=== PATIENT | female | born 1965 | race African-American/Black ===

== ENCOUNTER 2016-05-25 13:21 | Emergency (ER) | payer SELFPAY ==
[~2016-05-25] VITALS: Ht 165.1 cm; Wt 99.8 kg
[2016-05-25] MEDS ORDERED: CYCLOBENZAPRINE 10 MG TABLET. PO ONE (15:30)
[2016-05-25] MEDS ORDERED: HYDROCODONE/APAP 5/325MG TABLET. PO ONE (15:30)
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
--- NOTE | 2016-05-25 16:11 | RAD ---
CT of the head without contrast, 05/25/2016: History: Fall, head injury, possible loss of consciousness The ventricles are within normal limits in size. There is no shift of the midline structures. There is no evidence of acute intracranial hemorrhage or mass effect. IMPRESSION: No acute intracranial abnormality is detected. CT of the cervical spine without contrast, 05/25/2016: Noncontrast scans were obtained with multiplanar reconstructions produced. No fracture or dislocation is identified. There are moderate degenerative changes involving scattered facet joints bilaterally. There are mild scattered marginal spurs. There are several mild posterior disc bulges. There is mild bony foraminal narrowing at multiple levels bilaterally. No high-grade central spinal stenosis is seen. IMPRESSION: 1. Moderate degenerative change. 2. No acute cervical spine abnormality is detected. PQRS Compliance Statement: One or more of the following individualized dose reduction techniques were utilized for this examination: 1. Automated exposure control 2. Adjustment of the mA and/or kV according to patient size 3. Use of iterative reconstruction technique
--- NOTE | 2016-05-25 16:42 | RAD ---
Indication pain associated with a fall. AP and lateral views of the thoracic spine were obtained. A swimmer's view was also obtained. There are degenerative changes involving the lower thoracic spine. An acute bony finding is not seen. IMPRESSION: Mild degenerative change. No acute finding seen
[2016-05-25] MEDS ORDERED: CYCL10TA2 PO (17:20)
[2016-05-25] MEDS ORDERED: HYDR-971 PO (17:20)
[2016-05-25] MEDS ORDERED: PROM25TA10 PO (17:20)
[2016-05-25 17:54] VITALS: BP 138/66
== END 2016-05-25 18:11 | disposition home or self-care (01) ==
LOC: ER 13:21
DX: S13.4XXA Sprain of ligaments of cervical spine, initial encounter (principal); S20.229A Contusion of unspecified back wall of thorax, initial encounter; S09.90XA Unspecified injury of head, initial encounter; E05.00 Thyrotoxicosis with diffuse goiter without thyrotoxic crisis or storm; Z90.710 Acquired absence of both cervix and uterus; Z90.49 Acquired absence of other specified parts of digestive tract; Z88.0 Allergy status to penicillin; Z91.041 Radiographic dye allergy status; W01.198A Fall on same level from slipping, tripping and stumbling with subsequent striking against other object, initial encounter; Y93.89 Activity, other specified; Y92.89 Other specified places as the place of occurrence of the external cause; Y99.8 Other external cause status
CPT/HCPCS: 70450; 72072; 72125; 99284-25

== ENCOUNTER 2017-02-12 07:40 | Emergency (ER) | payer BC ==
[~2017-02-12] VITALS: Ht 166.4 cm; Wt 97.1 kg
[~2017-02-12 07:40] MED LIST: CYCL10TA2 PO; HYDR-971 PO; PROM25TA10 PO
[2017-02-12] MEDS ORDERED: KETOROLAC 30 MG/ML INJ. IV ONE (08:00)
[2017-02-12] MEDS ORDERED: ONDANSETRON PF 4 MG/2 ML VIAL. IV ONE (08:00)
[2017-02-12 08:03] LABS: BILIRUBIN,URINE SMALL (NEG); GLUCOSE,URINE NEGATIVE (NEG); NITRITE,URINE NEGATIVE (NEG); PH,URINE 5.5; PROTEIN,URINE NEGATIVE (NEG-TRACE); UROBILINOGEN,URINE 0.2 mg/dL (0.2 mg/dL)
[2017-02-12 08:14] LABS: BACTERIA,URINE FEW /HPF (0-FEW); RBC,URINE 0 /HPF (0-2); WBC,URINE OCC /HPF (0-4)
[2017-02-12 08:15] LABS: SQUAMOUS EPITHELIAL CELL,UR MOD /LPF
[2017-02-12] MEDS ORDERED: IV NORMAL SALINE 1000ML BAG 1,000 ML IV ONE (08:15)
[2017-02-12 08:33] LABS: BASO % 1 % (0-3); EOS % 4 % (0-3); HEMATOCRIT 39.8 % (36.0-47.0); HEMOGLOBIN 13.1 g/dL (12.0-15.5); LYMPH # 1.3 x10^3/uL (1.0-4.8); LYMPH % 27 % (24-48); MEAN CORPUSCULAR HEMOGLOBIN 29 pg (25-35); MEAN CORPUSCULAR HGB CONC 33 g/dL (31-37); MEAN CORPUSCULAR VOLUME 89 fL (79-100); MONO % 8 % (0-9); NEUT % 60 % (31-73); PLATELET COUNT 245 x10^3/uL (140-400); RED BLOOD COUNT 4.48 x10^6/uL (3.50-5.40); RED CELL DISTRIBUTION WIDTH 14.3 % (11.5-14.5); WHITE BLOOD COUNT 4.7 x10^3/uL (4.0-11.0)
[2017-02-12 08:48] LABS: CALCIUM 9.5 mg/dL (8.5-10.1); CREATININE 0.6 mg/dL (0.6-1.0); POTASSIUM 3.6 mmol/L (3.5-5.1)
[2017-02-12 08:54] LABS: ALBUMIN 3.8 g/dL (3.4-5.0); ALBUMIN/GLOBULIN RATIO 0.9 (1.0-1.7); TOTAL BILIRUBIN 0.7 mg/dL (0.2-1.0); TOTAL PROTEIN 7.9 g/dL (6.4-8.2)
--- NOTE | 2017-02-12 09:04 | RAD ---
CT of the abdomen and pelvis without contrast, 02/12/2017: History: Right-sided pain Noncontrast scans were obtained to the abdomen and pelvis utilizing the renal stone protocol. Comparison is made to a study from 04/14/2015. No intrarenal calculi are identified. The renal collecting systems and ureters are not dilated. The distal ureters are not clearly delineated. There is no evidence of a ureteral calculus. The urinary bladder is largely collapsed and poorly defined. Several well-defined low density lesions in the liver are compatible with hepatic cysts. The largest of these measures 4.2 cm in diameter and lies inferiorly in the right lobe. Several of these cysts, including this largest cyst, have increased slightly in size since 04/14/2015. The gallbladder is unremarkable. No pancreatic abnormality is seen. The spleen is of normal size. No abdominal or pelvic adenopathy is evident. The uterus and appendix are surgically absent. The bowel loops are not dilated. No free air or significant free fluid is evident in the abdomen or pelvis. There are moderate degenerative changes involving the facet joints in the lower lumbar spine. IMPRESSION: 1. No urinary tract calculi are identified. 2. Multiple hepatic cysts. PQRS Compliance Statement: One or more of the following individualized dose reduction techniques were utilized for this examination: 1. Automated exposure control 2. Adjustment of the mA and/or kV according to patient size 3. Use of iterative reconstruction technique
--- NOTE | 2017-02-12 09:49 | RAD ---
Chest, 2 views, 02/12/2017: History: Right flank pain The heart size and pulmonary vascularity are normal. No pulmonary infiltrates are seen. There is no evidence of pleural fluid. Moderate spurring is present in the spine. IMPRESSION: No acute cardiopulmonary abnormality is detected.
--- NOTE | 2017-02-12 09:55 | PHYS DOC ---
Past Medical History Past Medical History: Kidney Infection, Kidney Stone, Other Additional Past Medical Histor: cyst on right ovary, BOWEL OBSTRUCTION, HYDRONEPHORSIS, GRAVES disease Past Surgical History: Appendectomy, , Hysterectomy Additional Past Surgical Histo: ovarian torsion, URETER STENTS Alcohol Use: None Drug Use: None Adult General Chief Complaint Chief Complaint: ABDOMINAL PAIN HPI HPI Patient is a 51 year old female who presents ambulatory to the ED with the complaint of right flank pain and suprapubic discomfort for 2 days. The pain has been constant for 2 days. She's had some nausea but no vomiting. She has also felt burning with urination. She had fever to 102 this morning. Patient states she has a history of "right hydronephrosis with 2 stents in her right kidney", they never did know for sure whether it was a kidney stone, she did not pass a kidney stone that she knows of. Her urologist was Dr. Tillman. Patient states she has had a hysterectomy and also had a right oophorectomy for ovarian torsion. She had some type of a tumor or mass that turned out to be benign. She has also had a small bowel obstruction. PCP none Review of Systems Review of Systems Constitutional: As in history of present illness HENT: Denies nasal congestion or sore throat [] Respiratory: Denies cough or shortness of breath [] Cardiovascular: Denies chest pain GI: As in history of present illness : Complaining of burning with urination and feels like she urinates only small amounts. Musculoskeletal: Right flank pain Integument: Denies rash or skin lesions [] Neurologic: Denies headache, focal weakness or sensory changes [] Current Medications Current Medications Current Medications Medications (Trade) Dose Ordered Sig/Cari Start Time Stop Time Status Last Admin Dose Admin Ketorolac Tromethamine (Toradol) 30 mg 1X ONCE 02/12/17 08:00 02/12/17 08:02 DC 02/12/17 08:31 30 MG Ondansetron HCl (Zofran) 4 mg 1X ONCE 02/12/17 08:00 02/12/17 08:01 DC 02/12/17 08:30 4 MG Sodium Chloride 1,000 ml @ 1,000 mls/hr 1X ONCE 02/12/17 08:15 02/12/17 09:14 DC 02/12/17 08:23 1,000 MLS/HR Allergies Allergies Allergies Coded Allergies Type Severity Reaction Last Updated Verified Iodinated Contrast Media - IV Dye Allergy Intermediate Vomiting 04/27/13 Yes Penicillins Allergy Intermediate hives 04/27/13 Yes Physical Exam Physical Exam Constitutional: Well developed, well nourished, no acute distress, non-toxic appearance. Alert, ambulatory, no acute distress. Afebrile here. HENT: Normocephalic, atraumatic, bilateral external ears normal, nose normal. [ ] Eyes: conjunctiva normal, no discharge. [] Neck: Normal range of motion, no stridor. [] Cardiovascular:Heart rate regular rhythm, no murmur [] Lungs & Thorax: Bilateral breath sounds clear to auscultation [] Abdomen: Bowel sounds normal, soft, no tenderness, no masses, no pulsatile masses. [] Skin: Warm, dry, no erythema, no rash. [] Back: Mild right CVA tenderness, no muscle spasm, no left-sided tenderness Extremities: No tenderness, no cyanosis, no clubbing, ROM intact, no edema. [] Neurologic: Alert and oriented X 3, normal motor function, no focal deficits noted. [] Current Patient Data Vital Signs Vital Signs Date Time Temp Pulse Resp B/P (MAP) Pulse Ox O2 Delivery O2 Flow Rate FiO2 02/12/17 10:09 68 139/66 (90) 100 Room Air 02/12/17 07:46 98.2 18 98.2 Lab Values Laboratory Tests Test 02/12/17 07:50 02/12/17 08:25 Urine Collection Type Void Urine Color Yahaira Urine Clarity Cloudy Urine pH 5.5 Urine Specific [place] >=1.030 Urine Protein Negative mg/dL (NEG-TRACE) Urine Glucose (UA) Negative mg/dL (NEG) Urine Ketones (Stick) Trace mg/dL (NEG) Urine Blood Small (NEG) Urine Nitrite Negative (NEG) Urine Bilirubin Small (NEG) Urine Urobilinogen Dipstick 0.2 mg/dL (0.2 mg/dL) Urine Leukocyte Esterase Negative (NEG) Urine RBC 0 /HPF (0-2) Urine WBC Occ /HPF (0-4) Urine Squamous Epithelial Cells Mod /LPF Urine Bacteria Few /HPF (0-FEW) Urine Mucus Mod /LPF White Blood Count 4.7 x10^3/uL (4.0-11.0) Red Blood Count 4.48 x10^6/uL (3.50-5.40) Hemoglobin 13.1 g/dL (12.0-15.5) Hematocrit 39.8 % (36.0-47.0) Mean Corpuscular Volume 89 fL (79-100) Mean Corpuscular Hemoglobin 29 pg (25-35) Mean Corpuscular Hemoglobin Concent 33 g/dL (31-37) Red Cell Distribution Width 14.3 % (11.5-14.5) Platelet Count 245 x10^3/uL (140-400) Neutrophils (%) (Auto) 60 % (31-73) Lymphocytes (%) (Auto) 27 % (24-48) Monocytes (%) (Auto) 8 % (0-9) Eosinophils (%) (Auto) 4 % (0-3) H Basophils (%) (Auto) 1 % (0-3) Neutrophils # (Auto) 2.8 x10^3uL (1.8-7.7) Lymphocytes # (Auto) 1.3 x10^3/uL (1.0-4.8) Monocytes # (Auto) 0.4 x10^3/uL (0.0-1.1) Eosinophils # (Auto) 0.2 x10^3/uL (0.0-0.7) Basophils # (Auto) 0.0 x10^3/uL (0.0-0.2) Sodium Level 143 mmol/L (136-145) Potassium Level 3.6 mmol/L (3.5-5.1) Chloride Level 105 mmol/L (98-107) Carbon Dioxide Level 28 mmol/L (21-32) Anion Gap 10 (6-14) Blood Urea Nitrogen 10 mg/dL (7-20) Creatinine 0.6 mg/dL (0.6-1.0) Estimated GFR (Cockcroft-Gault) 128.0 BUN/Creatinine Ratio 17 (6-20) Glucose Level 113 mg/dL (70-99) H Calcium Level 9.5 mg/dL (8.5-10.1) Total Bilirubin 0.7 mg/dL (0.2-1.0) Aspartate Amino Transferase (AST) 16 U/L (15-37) Alanine Aminotransferase (ALT) 17 U/L (14-59) Alkaline Phosphatase 70 U/L (46-116) Total Protein 7.9 g/dL (6.4-8.2) Albumin 3.8 g/dL (3.4-5.0) Albumin/Globulin Ratio 0.9 (1.0-1.7) L Lipase 135 U/L (73-393) Laboratory Tests 02/12/17 08:25 Laboratory Tests 02/12/17 08:25 EKG EKG [] Radiology/Procedures Radiology/Procedures CT scan of the abdomen and pelvis read by the radiologist. No acute abnormalities. Two-view chest x-ray read by me. No acute abnormalities.[] Course & Med Decision Making Course & Med Decision Making Pertinent Labs and Imaging studies reviewed. (See chart for details) 51-year-old female with a history of right hydronephrosis without definitely identified stone, also a history of small bowel obstruction and gives a history of hysterectomy and right oophorectomy for benign ovarian mass with torsion. Patient's urinalysis is unremarkable in the ED. CT scan of the abdomen and pelvis is unremarkable. Chest x-ray negative. Patient was given IV Toradol with some relief of her discomfort. I reassured her that we are not finding any serious etiology. She did give a history of fever but here she has no fever and no leukocytosis. We will watch her with fluids and NSAIDs at home, she is agreeable to that plan. CV instructions for plan. [] Dragon Disclaimer Dragon Disclaimer This electronic medical record was generated, in whole or in part, using a voice recognition dictation system. Departure Departure Impression: Primary Impression: Acute right flank pain Disposition: HOME, SELF-CARE Condition: STABLE Referrals: NO PCP (PCP) Patient Instructions: Flank Pain, [id number] Additional Instructions: Today, chest x-ray, CT scan, and urinalysis were all normal and did not show a cause of your flank pain. This is reassuring in that we are not finding any infection, kidney stone, or other cause. At this time, we will have you drink plenty of fluids and take ibuprofen for pain. If you continue to have pain longer than about 2-3 days, or if your symptoms worsen, follow up with your primary care doctor or with a urologist. KASEY BEE MD Feb 12, 2017 09:55
[2017-02-12 10:09] VITALS: BP 139/66
== END 2017-02-12 10:10 | disposition home or self-care (01) ==
LOC: ER 07:40
DX: R10.30 Lower abdominal pain, unspecified (principal); R50.9 Fever, unspecified; R11.0 Nausea; R30.0 Dysuria; Z87.442 Personal history of urinary calculi; Z88.0 Allergy status to penicillin; Z90.710 Acquired absence of both cervix and uterus; Z90.721 Acquired absence of ovaries, unilateral; Z91.041 Radiographic dye allergy status
CPT/HCPCS: 36415; 71020; 74176; 80053; 81001; 83690; 85025; 96361; 96374; 96375; 99285; J1885; J2405; J7030

== ENCOUNTER 2017-10-03 10:57 | Emergency (ER) | payer SELFPAY, BC ==
[2017-10-03 11:36] LABS: BILIRUBIN,URINE NEGATIVE (NEG); CLARITY,URINE CLEAR; COLOR,URINE ORANGE; GLUCOSE,URINE NEGATIVE (NEG); NITRITE,URINE POSITIVE (NEG); PROTEIN,URINE NEGATIVE (NEG-TRACE)
[2017-10-03 11:41] LABS: ADD MAN DIFF? NO
[2017-10-03 11:43] LABS: NEG OBC UR NEG; POS OBC UR POS; U PREG PATIENT NEGATIVE (NEG)
[2017-10-03 11:45] LABS: BASO % 1 % (0-3); EOS # 0.1 x10^3/uL (0.0-0.7); EOS % 3 % (0-3); HEMATOCRIT 40.9 % (36.0-47.0); HEMOGLOBIN 13.5 g/dL (12.0-15.5); LYMPH # 1.7 x10^3/uL (1.0-4.8); LYMPH % 39 % (24-48); MEAN CORPUSCULAR HEMOGLOBIN 29 pg (25-35); MEAN CORPUSCULAR HGB CONC 33 g/dL (31-37); MEAN CORPUSCULAR VOLUME 87 fL (79-100); MONO # 0.3 x10^3/uL (0.0-1.1); MONO % 7 % (0-9); NEUT # 2.2 x10^3uL (1.8-7.7); NEUT % 50 % (31-73); PLATELET COUNT 235 x10^3/uL (140-400); RED BLOOD COUNT 4.68 x10^6/uL (3.50-5.40); RED CELL DISTRIBUTION WIDTH 14.5 % (11.5-14.5); WHITE BLOOD COUNT 4.4 x10^3/uL (4.0-11.0)
[2017-10-03] MEDS: KETOROLAC 15 MG/ML VIAL. IV (11:48)
[2017-10-03] MEDS: IV NORMAL SALINE 1000ML BAG 1,000 ML IV (11:49)
[2017-10-03 11:52] LABS: BACTERIA,URINE 0 /HPF (0-FEW); RBC,URINE OCC /HPF (0-2); SQUAMOUS EPITHELIAL CELL,UR FEW /LPF; WBC,URINE 0 /HPF (0-4)
[2017-10-03 12:02] LABS: ANION GAP 6 (6-14); BLOOD UREA NITROGEN 13 mg/dL (7-20); CALCIUM 9.1 mg/dL (8.5-10.1); CARBON DIOXIDE 30 mmol/L (21-32); CHLORIDE 106 mmol/L (98-107); CREATININE 0.7 mg/dL (0.6-1.0); GFR 106.7; GLUCOSE 103 mg/dL (70-99); POTASSIUM 4.2 mmol/L (3.5-5.1); SODIUM 142 mmol/L (136-145)
== END 2017-10-03 12:33 | disposition home or self-care (01) ==
LOC: ER 10:57
DX: G89.29 Other chronic pain (principal); Z90.710 Acquired absence of both cervix and uterus; Z90.49 Acquired absence of other specified parts of digestive tract; Z79.899 Other long term (current) drug therapy; Z88.0 Allergy status to penicillin; Z91.041 Radiographic dye allergy status
CPT/HCPCS: 36415; 74176; 80048; 81001; 81025; 85025; 96374; 99285; J1885; J7030

== ENCOUNTER 2018-12-14 04:57 | Emergency (ER) | payer SELFPAY ==
[~2018-12-14] VITALS: Ht 165.1 cm; Wt 99.8 kg
[~2018-12-14 04:57] MED LIST changes: +AMOX500C PO; +HYDR-3164 PO; -HYDR-971 PO; +IBUP-1007 PO; +TRAM-48 PO
[2018-12-14 05:00] VITALS: BP 150/82
[2018-12-14] MEDS ORDERED: IBUPROFEN 400 MG TABLET. PO ONE (06:00)
--- NOTE | 2018-12-14 06:18 | PHYS DOC ---
Past Medical History Past Medical History: Kidney Infection, Kidney Stone, Other Additional Past Medical Histor: cyst on right ovary, BOWEL OBSTRUCTION, HYDRONEPHORSIS, GRAVES disease (ALFA SKINNER MD) Past Surgical History: Appendectomy, , Hysterectomy Additional Past Surgical Histo: ovarian torsion, URETER STENTS (ALFA SKINNER MD) Alcohol Use: Occasionally Drug Use: None (ALFA SKINNER MD) Adult General Chief Complaint Chief Complaint: HIP PAIN HPI HPI Patient is a 53 year old female who presents with complaining of left hip pain. Patient states she had an accidental fall from a standing position 1 month ago and felt a pop in left hip with edema and ecchymosis of her left thigh and leg that gradually improves but his pain is not getting better. Patient states she took [id number] Tylenol and Advil without improvement of her pain and did not seek medical attention. Patient denies fever and chills, focal neuro deficit, history of DVT and PE. (ALFA SKINNER MD) Review of Systems Review of Systems Constitutional: Denies fever or chills [] Eyes: Denies change in visual acuity, redness, or eye pain [] HENT: Denies nasal congestion or sore throat [] Respiratory: Denies cough or shortness of breath [] Cardiovascular: No additional information not addressed in HPI [] GI: Denies abdominal pain, nausea, vomiting, bloody stools or diarrhea [] : Denies dysuria or hematuria [] Musculoskeletal: Denies back pain, reports joint pain [] Integument: Denies rash or skin lesions [] Neurologic: Denies headache, focal weakness or sensory changes [] Endocrine: Denies polyuria or polydipsia [] All other systems were reviewed and found to be within normal limits, except as documented in this note. (ALFA SKINNER MD) Current Medications Current Medications Current Medications Medications (Trade) Dose Ordered Sig/Cari Start Time Stop Time Status Last Admin Dose Admin Ibuprofen (Motrin) 800 mg 1X ONCE 12/14/18 06:00 12/14/18 06:04 DC 12/14/18 06:13 800 MG (DANIEL BASSETT DO) Allergies Allergies Allergies Coded Allergies Type Severity Reaction Last Updated Verified Iodinated Contrast Media - IV Dye Allergy Intermediate Vomiting 04/27/13 Yes Penicillins Allergy Intermediate hives 04/27/13 Yes (DANIEL BASSETT DO) Physical Exam Physical Exam Constitutional: Well developed, well nourished, mild distress, non-toxic appearance. [] HENT: Normocephalic, atraumatic. Eyes: PERRLA, EOMI, conjunctiva normal, no discharge. [] Neck: Normal range of motion, no tenderness, supple, no stridor. [] Cardiovascular:Heart rate regular rhythm, no murmur [] Lungs & Thorax: Bilateral breath sounds clear to auscultation [] Skin: Warm, dry, no erythema, no rash. [] Back: No tenderness, no CVA tenderness. [] Extremities: Left hip without sign of injury or ecchymosis, painful range of motion, no erythema or focal neuro deficit . Neurologic: Alert and oriented X 3, normal motor function, normal sensory function, no focal deficits noted. [] Psychologic: Affect normal, judgement normal, mood normal. [] (ALFA SKINNER MD) Current Patient Data Vital Signs Vital Signs Date Time Temp Pulse Resp B/P (MAP) Pulse Ox O2 Delivery O2 Flow Rate FiO2 12/14/18 05:00 98.2 81 18 150/82 (104) 98 Room Air 98.2 (DANIEL BASSETT DO) EKG EKG [] (ALFA SKINNER MD) Radiology/Procedures Radiology/Procedures [] (ALFA SKINNER MD) Course & Med Decision Making Course & Med Decision Making Pertinent Imaging studies are pending. Sign out given to at 0600 for further evaluation and final disposition. Discussed current findings and plan with patient and family, who acknowledge understanding and agreement. (ALFA SKINNER MD) Course & Med Decision Making Venous Doppler ultrasound, left hip/pelvis x-ray unremarkable. Pain addressed ED. Recommendations are for her PCP follow-up, outpatient MRI and evaluation for physical therapy. (DANIEL BASSETT DO) Dragon Disclaimer Dragon Disclaimer This electronic medical record was generated, in whole or in part, using a voice recognition dictation system. (ALFA SKINNER MD) Departure Departure Impression: Primary Impression: Hip pain, left Disposition: HOME, SELF-CARE Condition: STABLE Referrals: NO PCP (PCP) Patient Instructions: Hip Injury Additional Instructions: Please take Tylenol for pain and tramadol as needed for additional relief. Take Advil or naproxen if you have stomach upset. Follow-up with local primary care physician for evaluation and consideration of MRI and/or physical therapy. Scripts Tramadol Hcl (TRAMADOL HCL) 50 Mg Tablet 50 MG PO Q6HRS PRN for PAIN, #15 TAB Prov: DANIEL BASSETT DO 12/14/18 ALFA SKINNER MD Dec 14, 2018 06:18 DANIEL BASSETT DO Dec 14, 2018 07:50
--- NOTE | 2018-12-14 06:39 | RAD ---
INDICATION: Left leg pain COMPARISON: None. TECHNIQUE: Grayscale, color and doppler ultrasound images were obtained of the left lower extremity venous vasculature. LEFT: No thrombus identified in the common femoral vein, femoral vein, popliteal vein or visualized calf veins. IMPRESSION: 1. No thrombus identified in deep venous system of the left lower extremity. Electronically signed by: Gabino Amos MD (12/14/2018 6:36 AM) [id number]
[2018-12-14] MEDS ORDERED: KETOROLAC 60 MG/2 ML VIAL. IM ONE (07:45)
[2018-12-14] MEDS ORDERED: TRAM50TA PO (07:50)
--- NOTE | 2018-12-14 08:16 | RAD ---
Examination: HIP LEFT 2V WITH PELVIS History: Fall 1 month ago. Pain. Comparison/Correlation: None Findings: Frontal view of the pelvis, frontal view of the left hip and frog-leg lateral view of the left hip were obtained. Hip joint spaces are symmetric and unremarkable. No acute fracture or bony destruction. Soft tissues are unremarkable. Impression: No acute process. No significant degenerative change. Electronically signed by: Viral Delacruz MD (12/14/2018 8:13 AM) [facility]
== END 2018-12-14 08:05 | disposition home or self-care (01) ==
LOC: ER 04:57
DX: M25.552 Pain in left hip (principal); Z87.442 Personal history of urinary calculi; Z90.89 Acquired absence of other organs; Z90.710 Acquired absence of both cervix and uterus; Z95.5 Presence of coronary angioplasty implant and graft
CPT/HCPCS: 73502; 93971; 96372; 99284; J1885